=== PATIENT | male | born 2000 | race Caucasian/White ===

== ENCOUNTER 2020-07-15 00:36 | Emergency (ER) | payer SELFPAY ==
[~2020-07-15] VITALS: Ht 175.2 cm; Wt 63.5 kg
[~2020-07-15 00:36] MED LIST: ATARAX25 MG PO; BACTRIM DS 8001 TA1 PO; ELIMITE 5%60 GM PO; KEFLEX500 MG PO; MOTRIN800 MG PO
[2020-07-15 01:25] LABS: BASO # 0.1 10*3/uL (0.0-0.1); BASO % 0.3 % (0.0-1.0); EOS # 0.1 10*3/uL (0.0-0.4); EOS % 0.4 % (1.0-4.0); HEMATOCRIT 43.2 % (42.0-52.0); LYMPH # 2.4 10*3/uL (1.3-4.4); LYMPH % 13.3 % (27.0-41.0); MEAN CORPUSCULAR HGB 31.3 pg (27.0-31.0); MEAN CORPUSCULAR HGB CONC 34.7 g/dl (33.0-37.0); MEAN PLATELET VOLUME 10.2 fl (9.6-12.3); MONO % 5.3 % (3.0-9.0); NEUT # 14.8 10*3/uL (2.3-7.9); NEUT % 80.3 % (47.0-73.0); PLATELET COUNT AUTOMATED 239 10*3/uL (130-400); RED CELL DISTRI WIDTH 12.2 % (0-14.5); WHITE BLOOD COUNT 18.4 10*3/uL (4.8-10.8)
[2020-07-15 01:34] LABS: INTERNATIONAL NORM RATIO 1.1 (2.0-3.5)
[2020-07-15 01:41] LABS: ALBUMIN 3.9 gm/dl (3.1-4.5); ALKALINE PHOSPHATASE 78 U/L (45-117); BUN 9 mg/dl (7-24); CHLORIDE 104 mmol/L (98-107); CREATININE 1.19 mg/dL (0.70-1.30); POTASSIUM 3.4 mmol/L (3.5-5.1); SGOT/AST 15 IU/L (3-35); SGPT/ALT 18 U/L (12-78); SODIUM 140 mmol/L (136-145); TOTAL PROTEIN 7.4 gm/dL (6.4-8.2)
[2020-07-15 01:48] LABS: TROPONIN I < 0.015 ng/ml (<0.045)
[2020-07-15 02:49] LABS: URINE AMPHETAMINES < 1000 (1000ng/ml); URINE BARBITURATES < 200 (200ng/ml); URINE BENZODIAZEPINES < 200 (200ng/ml); URINE CANNABINOIDS (THC) > 50 (50ng/ml); URINE COCAINE > 300 (300ng/ml); URINE METHADONE < 300 (300ng/ml); URINE OPIATES < 300 (300ng/ml)
[2020-07-15 02:50] LABS: URINE PHENCYCLIDINE < 25 (25ng/ml)
[2020-07-15 06:08] VITALS: BP 138/91
== END 2020-07-15 06:26 | disposition left against medical advice (07) ==
LOC: ED 00:36
PROVIDERS: Emergency Medicine
DX: T65.91XA Toxic effect of unspecified substance, accidental (unintentional), initial encounter (principal); F17.200 Nicotine dependence, unspecified, uncomplicated; Z79.899 Other long term (current) drug therapy; X58.XXXA Exposure to other specified factors, initial encounter; Y93.89 Activity, other specified; Y92.89 Other specified places as the place of occurrence of the external cause; Y99.8 Other external cause status

== ENCOUNTER 2022-03-23 02:51 | Emergency (ER) | payer SELFPAY ==
[~2022-03-23] VITALS: Ht 180.3 cm; Wt 63.5 kg
[2022-03-23 03:42] LABS: BASO # 0.1 10*3/uL (0.0-0.1); BASO % 0.6 % (0.0-1.0); EOS % 0.2 % (1.0-4.0); HEMATOCRIT 42.9 % (42.0-52.0); LYMPH # 2.2 10*3/uL (1.3-4.4); LYMPH % 17.8 % (27.0-41.0); MEAN CELL VOLUME 87.2 fl (80.0-94.0); MEAN CORPUSCULAR HGB 31.5 pg (27.0-31.0); MEAN CORPUSCULAR HGB CONC 36.1 g/dl (33.0-37.0); MEAN PLATELET VOLUME 10.8 fl (9.6-12.3); MONO % 7.6 % (3.0-9.0); NEUT # 9.3 10*3/uL (2.3-7.9); NEUT % 73.5 % (47.0-73.0); PLATELET COUNT AUTOMATED 244 10*3/uL (130-400); RED BLOOD COUNT 4.92 10*6/uL (4.50-5.90); RED CELL DISTRI WIDTH 12.3 % (0-14.5); WHITE BLOOD COUNT 12.6 10*3/uL (4.8-10.8)
[2022-03-23 03:50] LABS: CHLORIDE 100 mmol/L (98-107); POTASSIUM 2.8 mmol/L (3.4-5.1); SODIUM 136 mmol/L (136-145)
[2022-03-23 03:56] LABS: BUN 15 mg/dl (9-23); CREATININE 1.08 mg/dL (0.70-1.30)
[2022-03-23 04:03] LABS: BILIRUBIN Negative (Negative); BLOOD Negative (Negative); CLARITY Clear (Clear); COLOR Yellow (Yellow); GLUCOSE Negative (Negative); KETONE Trace (Negative); LEUKO ESTERASE Negative (Negative); NITRITE Negative (Negative); PH 5.5 (4.5-8.0)
[2022-03-23 04:08] LABS: RBC 0-2 rbc/hpf (0-2); WBC 0-2 wbc/hpf (0-5)
[2022-03-23 04:10] LABS: URINE BARBITURATES Negative (200ng/ml); URINE COCAINE Negative (300ng/ml); URINE METHADONE Negative (300ng/ml); URINE OPIATES Negative (300ng/ml); URINE PHENCYCLIDINE Negative (25ng/ml)
[2022-03-23 04:13] LABS: URINE AMPHETAMINES Positive (1000ng/ml); URINE BENZODIAZEPINES Positive (200ng/ml); URINE CANNABINOIDS (THC) Positive (50ng/ml)
[2022-03-23 11:16] VITALS: BP 140/80
== END 2022-03-23 11:12 ==
LOC: ED 02:51
PROVIDERS: Emergency Medicine
DX: Z02.89 Encounter for other administrative examinations (principal); F19.10 Other psychoactive substance abuse, uncomplicated; E87.6 Hypokalemia

== ENCOUNTER 2024-01-11 03:16 | Emergency (ER) | payer OTHER ==
[~2024-01-11] VITALS: Ht 175.2 cm; Wt 72.6 kg
[2024-01-11 03:28] VITALS: BP 123/75
[2024-01-11] MEDS ORDERED: DIVALPROEX SOD500 MG PO (03:38)
[2024-01-11] MEDS ORDERED: OLANZAPINE5 MG PO (03:39)
[2024-01-11] MEDS ORDERED: MINIPRESS2 M1 PO (03:39)
[2024-01-11] MEDS ORDERED: LORazepam 1 MG TAB PO ONE (03:50)
== END 2024-01-11 03:55 | disposition left against medical advice (07) ==
LOC: ED 03:16
DX: F41.9 Anxiety disorder, unspecified (principal); F31.9 Bipolar disorder, unspecified; F15.10 Other stimulant abuse, uncomplicated; Z53.29 Procedure and treatment not carried out because of patient's decision for other reasons

== ENCOUNTER 2024-01-11 06:43 | Emergency (ER) | payer OTHER ==
[~2024-01-11] VITALS: Wt 70.3 kg
[~2024-01-11 06:43] MED LIST changes: +DIVALPROEX SOD500 MG PO; +MINIPRESS2 M1 PO; +OLANZAPINE5 MG PO
[2024-01-11 07:07] LABS: BASO % 0.4 % (0.0-1.0); EOS % 0.3 % (1.0-4.0); HEMATOCRIT 42.5 % (42.0-52.0); LYMPH # 1.9 10*3/uL (1.3-4.4); LYMPH % 27.8 % (27.0-41.0); MEAN CELL VOLUME 86.2 fl (80.0-94.0); MEAN CORPUSCULAR HGB 31.4 pg (27.0-31.0); MEAN CORPUSCULAR HGB CONC 36.5 g/dl (33.0-37.0); MEAN PLATELET VOLUME 10.6 fl (9.6-12.3); MONO # 0.7 10*3/uL (0.1-1.0); MONO % 9.8 % (3.0-9.0); NEUT # 4.2 10*3/uL (2.3-7.9); NEUT % 61.6 % (47.0-73.0); PLATELET COUNT AUTOMATED 225 10*3/uL (130-400); RED BLOOD COUNT 4.93 10*6/uL (4.50-5.90); RED CELL DISTRI WIDTH 12.1 % (0-14.5); WHITE BLOOD COUNT 6.8 10*3/uL (4.8-10.8)
[2024-01-11 07:27] LABS: CHLORIDE 99 mmol/L (98-107); POTASSIUM 2.9 mmol/L (3.4-5.1)
[2024-01-11 07:34] LABS: BUN < 5 mg/dl (9-23)
== END 2024-01-11 07:57 | disposition left against medical advice (07) ==
LOC: ED 06:43
PROVIDERS: Internal Medicine
DX: F41.9 Anxiety disorder, unspecified (principal); F31.9 Bipolar disorder, unspecified; F15.10 Other stimulant abuse, uncomplicated; Z53.29 Procedure and treatment not carried out because of patient's decision for other reasons